=== PATIENT | male | born 1970 | race Caucasian/White ===

== ENCOUNTER 2019-02-27 15:54 | Emergency (ER) | payer SELFPAY ==
[~2019-02-27] VITALS: Ht 182.9 cm; Wt 87.5 kg
[2019-02-27 15:57] VITALS: BP 162/99
[2019-02-27] MEDS ORDERED: ACETAMINOPHEN 500 MG TABLET ONE (16:11)
[2019-02-27] MEDS ORDERED: LIDOCAINE-MPF 1%, 5ML ONE (16:24)
[2019-02-27] MEDS ORDERED: LIDOCAINE-MPF 1%, 5ML INFIL ONE (16:30)
== END 2019-02-27 17:24 | disposition home or self-care (01) ==
LOC: ED 17:00
DX: T16.1XXA Foreign body in right ear, initial encounter (principal); X58.XXXA Exposure to other specified factors, initial encounter; Y93.89 Activity, other specified; Y92.89 Other specified places as the place of occurrence of the external cause; Y99.8 Other external cause status
CPT/HCPCS: 69200; 99284